=== PATIENT | male | born 1995 | race African-American/Black ===

== ENCOUNTER 2024-03-13 19:34 | Emergency (ER) | payer OTHER | END 2024-03-13 23:36 | disposition left against medical advice (07) | LOC: ER 19:36 | DX: Z04.1 Encounter for examination and observation following transport accident (principal); Z53.21 Procedure and treatment not carried out due to patient leaving prior to being seen by health care provider ==

== ENCOUNTER → 2024-03-14 | Emergency (ER) | payer OTHER ==
[~2024-03-14] VITALS: Ht 167.6 cm; Wt 72.6 kg
[2024-03-14 17:19] VITALS: BP 131/61; TEMP 97.9
[2024-03-14 17:36] VITALS: O2SAT 98
== END | disposition home or self-care (01) ==
LOC: ER 18:29
DX: S13.4XXA Sprain of ligaments of cervical spine, initial encounter (principal); G44.209 Tension-type headache, unspecified, not intractable; V49.40XA Driver injured in collision with unspecified motor vehicles in traffic accident, initial encounter; Y93.89 Activity, other specified; Y92.89 Other specified places as the place of occurrence of the external cause; Y99.8 Other external cause status